=== PATIENT | male | born 1985 | race African-American/Black ===

== ENCOUNTER 2020-12-25 14:50 | Inpatient (IN) | payer BC ==
[~2020-12-25] VITALS: Ht 188 cm; Wt 122.5 kg
[2020-12-25] MEDS ORDERED: TRANXENE T-TAB7.5 MG (15:10)
--- NOTE | 2020-12-25 15:11 | NUR ---
SE RECIBE PTE ALERTA Y ORIENTADO X3 EL CAUL REFIERE VENIR POR VOMITOS Y ESCALOFRIOS. FAMILIAR REFIERE QUE EL PTE PUEDE ESTAR EN RETIRIADA DE ALCOHOL. SE MIDEN S/V A PTE Y SE REALIZA EKG A PTE. PTE SE COLOCA EN AREA DE OBSERVACION.
--- NOTE | 2020-12-25 16:44 | NUR ---
16:18 PACIENTE PRESENTA EPISODIO DE CONVULSION. PACIENTE AL MOMENTO SE LE REALIZA CANALIZACION DE VENA, ADMINISTRACION DE MEDICAMENTOS POR ORDEN MEDICA, PACIENTE ES EVALUADO POR DR. TONY. SE UBICA A PACIENTE EN DAREN DAVID 13 SE CONECTA A MONITOR CARDIACO OXIMETRIA DE PULSO SE RESTRINGE Y SE MANTIENE EN OBSERVACION LUEGO DE CIPRIANO SIDO ESTABILIZADO. SE DESIREE SIGNOS VITALES AL MOMENTO ESTABLES. SE MANTIENE A PACIENTE EN MONITOREO TOI.
--- NOTE | 2020-12-25 20:56 | NUR ---
SE REALIZA ADMNISTRACION DE MEDICAMNETOS POR ORDEN MEDICA.
--- NOTE | 2020-12-25 23:00 | NUR ---
SE RECIBE MASCULINO ALERTA Y DESORIENTADO POR ABBIE ESFERAS, EN DAREN CON BARANDAS ELEVADAS Y SEGURAS. EN COMPANIA DE FAMILIAR. CONECTADO A MONITOR CARDIACO CON OXIMETRIA DE PULSO. AREA DE VENOPUNCION EN MANO DERECHA Y OTRA EN MANO IZQUIERDA LIBRES DE EDEMA O ENROJECIMIENTO. SE OBSERVA SUDOROSO Y TEMBLANDO. RESTRINGIDO X2 EN EXTREMIDADES SUPERIORES. SE MANTIENE EN OBSERVACION POR CAMBIOS.
--- NOTE | 2020-12-26 06:04 | NUR ---
SE INSERTA KYLE #16 BAJO MEDIDAS ESTERILES. PACIENTE CON EGRESO URINARIO DE 400ML DE ORINA COLOR AMARILLA OSCURA. SE FIJA ANABELLA EN PIRNA RT Y SE MANTIENE PACIENTE EN OBSERVACION.
--- NOTE | 2020-12-26 08:03 | NUR ---
SE RECIBE PACIENTE ALERA, DORMIDO REFIERE NO DOLOR AL MOMENTO, EN CAMA CON MEDIDAS DE SEGURIDAD POR PRECAUCION. CONECTADO A TELEMETRIA CON S/V ESTABLES Y DOCUMENTADOS EN EXPEDIENTE. 2 CANALIZACIONES PATENTES EN MANO IZQUIERDA Y ANTEBRAZO RT CON SALIN LOCK. ENTREGAN DE TURNO ANTERIROR QUE PACIENTE PRESENTA B/P EN PARAMETROS POR LO QUE MEDICAMENTO ORDENADO DE CLEVIPREX NO SE ENCUENTRA BAJO ADMINISTRACION. SE CONSULTA CON DR. VILLAGOMEZ SOBRE B/P DE PACIENTE Y MEDICAMENTO EN HOLD Y EL MISMO REIFERE QUE SE MANTENGA EN OBSERVACION Y MEDICAMENTO EN HOLD. ORDENA ADMINSITRAR IV FLIUIDS. SE ORIENTA A APCIENTE REFIERE ENTENDER.
--- NOTE | 2020-12-26 11:18 | NUR ---
PACIENTE ES ADMITIDO POR EL DR. CHON KAT. SE ORIENTA A FAMILAIR DE PACIENTE SOBRE PROCESO DE ADMISON, LA MISMA REFIERE DESEA QUE EL MEDICO LE ORIENTE SOBRE PROCESO DE ADMISION ANTES DE REALIZAR Y EJECUTAR ORDENES MEDICAS. SE LLAMA A DR. CHON KAT Y SE LE NOTIFICA LO MISMO.
[2021-01-09] MEDS ORDERED: AMLODIPINE BESYL5 MG PO (13:44)
[2021-01-09] MEDS ORDERED: LOSARTAN-HCTZ1 EACH PO (13:44)
== END 2021-01-09 12:59 | disposition home or self-care (01) | DRG 897 ==
LOC: ER 14:50 → ICU 12-26 09:42 → ICU-2 12-26 09:42 → ICU 12-29 19:21
PROVIDERS: ADMIT Internal Medicine; ATTEND Internal Medicine
PROC: BW28ZZZ Computerized Tomography (CT Scan) of Head (ICD-10-PCS; principal; 2020-12-25)
PROC: BW40ZZZ Ultrasonography of Abdomen (ICD-10-PCS; 2020-12-26)
PROC: B24BYZZ Ultrasonography of Heart with Aorta using Other Contrast (ICD-10-PCS; 2020-12-27)
PROC: B030ZZZ Magnetic Resonance Imaging (MRI) of Brain (ICD-10-PCS; 2020-12-30)
DX: F10.131 Alcohol abuse with withdrawal delirium (principal); I16.1 Hypertensive emergency; N39.0 Urinary tract infection, site not specified; R65.10 Systemic inflammatory response syndrome (SIRS) of non-infectious origin without acute organ dysfunction; N17.8 Other acute kidney failure; R56.9 Unspecified convulsions; I10 Essential (primary) hypertension
CPT/HCPCS: 70553